=== PATIENT | female | born 1990 | race Caucasian/White ===

== ENCOUNTER 2017-11-21 13:06 | Emergency (ER) | payer OTHER ==
[~2017-11-21] VITALS: Ht 160 cm; Wt 56.7 kg
[2017-11-21 13:06] VITALS: BP 137/65
== END 2017-11-21 13:53 | disposition home or self-care (01) ==
LOC: ER 13:13
DX: S83.095A Other dislocation of left patella, initial encounter (principal); Z88.2 Allergy status to sulfonamides; X58.XXXA Exposure to other specified factors, initial encounter; Y93.89 Activity, other specified; Y92.89 Other specified places as the place of occurrence of the external cause; Y99.8 Other external cause status
CPT/HCPCS: 73564; 99284; A4606; Z7610

== ENCOUNTER 2017-12-06 16:14 | Emergency (ER) | payer OTHER ==
[~2017-12-06] VITALS: Ht 160 cm; Wt 61.2 kg
[2017-12-06 16:15] VITALS: BP 133/68
[2017-12-06] MEDS ORDERED: IBUPROFEN 600 MG TABLET PO ONE ×2 (17:46→18:00)
== END 2017-12-06 18:15 | disposition home or self-care (01) ==
LOC: ER 16:15
DX: M25.562 Pain in left knee (principal); Z88.2 Allergy status to sulfonamides
CPT/HCPCS: A4606; Z7610